=== PATIENT | male | born 1950 | race Native Hawaiian/Other Pacific Islander ===

== ENCOUNTER 2018-02-08 14:04 | Outpatient (CLI) | payer OTHER, BC | END 2018-02-08 19:58 | disposition home or self-care (01) | LOC: RAD 14:04 | DX: M79.672 Pain in left foot (principal) ==

== ENCOUNTER 2019-02-02 17:26 | Outpatient (CLI) | payer OTHER, BC | END 2019-02-02 23:42 | disposition home or self-care (01) | LOC: CT 17:26 | DX: R05 Cough (principal) ==

== ENCOUNTER 2020-02-06 07:47 | Outpatient (CLI) | payer BC, OTHER ==
[2020-02-06 09:50] LABS: POTASSIUM 4.5 mmol/L (3.6-5.2)
[2020-02-06 09:53] LABS: PLATELET COUNT 179 K/uL (142-355)
== END 2020-02-06 23:37 | disposition home or self-care (01) ==
LOC: CT 07:47
PROVIDERS: Internal Medicine
DX: R91.1 Solitary pulmonary nodule (principal); Z79.899 Other long term (current) drug therapy; R97.20 Elevated prostate specific antigen [PSA]; I10 Essential (primary) hypertension; G40.909 Epilepsy, unspecified, not intractable, without status epilepticus; R53.83 Other fatigue; N40.0 Benign prostatic hyperplasia without lower urinary tract symptoms
CPT/HCPCS: 36415; 80053; 80061; 81000; 82306; 82565; 82607; 84153; 84443; 84520; 85027; Q9963

== ENCOUNTER 2021-05-09 08:08 | Outpatient (CLI) | payer OTHER, MEDICARE | END 2021-05-09 19:11 | disposition home or self-care (01) | LOC: MRI 08:08 | PROVIDERS: ATTEND Urology | DX: R97.20 Elevated prostate specific antigen [PSA] (principal) | CPT/HCPCS: 36415; 82565; 84520; A9576 ==